=== PATIENT | female | born 1945 | race Caucasian/White ===

== ENCOUNTER → 2019-07-15 | Outpatient (CLI) | payer MEDICARE ==
--- NOTE | 2019-07-17 14:53 | MAM ---
EXAM DESCRIPTION: 3D Screening BILATERAL : Digital Mammography. CLINICAL HISTORY: 73 years Female SCREEN . Left breast tender. No personal or family history of breast cancer. Menarche age 11. Childbirth age 19. Menopause age unknown. No HRT.. Lifetime risk of developing breast cancer (Tyrer-Cuzick model)(%): 3.6. COMPARISON: 2-D digital diagnostic bilateral breast mammography May 2017 and July 2016.. TECHNIQUE: Bilateral CC and MLO projection full-field images, digital tomosynthesis mammographic technique. Bilateral digital 2-D full-field MLO images. CAD available for 2-D images. FINDINGS: The breast parenchymal density pattern is: Scattered areas of fibroglandular density. No skin thickening or nipple retraction. Axillary lymph nodes. Solitary microcalcifications. Vascular calcifications. No new focal, stellate mass or density, focal asymmetry , and no suspicious microcalcifications bilaterally. Stable mammograms compared to prior study. Taking into account, differences in mammographic technique. IMPRESSION: Benign exam. BIRAD CATEGORY: 2 BENIGN FINDINGS. RECOMMENDATIONS: FOLLOW UP: Routine digital bilateral mammographic screening, one year interval from June 2019 Written communication explaining the IMPRESSION and follow-up, will be mailed to the patient and referring health care provider. According to the [employer], yearly mammograms are recommended starting at age 40 and continuing as long as a woman is in good health. Any breast change noted on a breast self-exam should be reported promptly to the patient's healthcare provider. Breast MRI is recommended for women with an approximately 20-25% or greater lifetime risk of breast cancer, including women with a strong family history of breast or ovarian cancer and women who have been treated for Hodgkin's disease. A negative mammographic report should not delay tissue diagnosis in patients with significant clinical history or physical findings. Extremely dense breast tissue limits the sensitivity of digital mammography. Electronically signed by: Luke Alvarado MD 07/17/2019 2:51 PM [employer]IOR [employer]GER
== END ==
LOC: MAMMO 13:30
PROVIDERS: ATTEND Nurse Practitioner Family
DX: Z12.31 Encounter for screening mammogram for malignant neoplasm of breast (principal)

== ENCOUNTER → 2019-10-06 | Outpatient (CLI) | payer MEDICARE | LOC: LAB.O 09:14 | PROVIDERS: ATTEND Orthopaedic Surgery | DX: Z01.818 Encounter for other preprocedural examination (principal) ==